=== PATIENT | male | born 1995 | race Hispanic/Latino ===

== ENCOUNTER 2021-07-13 11:43 | Emergency (ER) | payer SELFPAY ==
--- NOTE | ~2021-07-13 | XR_ITS ---
EXAMINATION: XR lumbar spine 2-3V EXAM DATE: 07/13/2021 13:10 INDICATION: Low back pain X 3 months. [employer]. TECHNIQUE: Lumber spine frontal, lateral, lateral L5-S1 projections for interpretation. There is no prior study for comparison. FINDINGS: The vertebral bodies are aligned in the AP dimension. Vertebral body and disc heights are well-maintained. There are no acute fractures identified. There is no spondylolysis. Facet joints dem onstrate mild arthropathy at L5-S1. Sacrum, sacroiliac joints, sacral arcuate lines are intact. Yuniel sue soft tissue is unremarkable. IMPRESSION: Mild L5-S1 facet arthropathy. Reviewed, dictated and finalized at location A.
[2021-07-13 11:49] VITALS: BP 111/62; PULSE 79; RESP 18; TEMP 36.4; O2SAT 99
[2021-07-13] MEDS: MORPHINE SULFATE (*CRX) 4 MG/ML INJ IV PUSH (13:31)
[2021-07-13 13:59] LABS: Add Urine Microscopic? NO; Appearance Urine Clear (Clear); Bilirubin Urine Negative (Negative); Blood Urine Negative (Negative); Color Urine Yellow (Yellow); Glucose Urine UA Negative (Negative); Ketones Urine Negative (Negative); Leukocyte Esterase Ur Negative LEU/UL (Negative); Nitrate Urine Negative (Negative); Protein Urine Negative (Negative); Specific Grav Ur 1.016 (1.001-1.035); Urobilinogen Urine Negative mg/dL (<2.0)
[2021-07-13 14:06] LABS: Basophils Percent Auto 0.5 % (0.2-1.2); Eosinophils Absolute Auto 0.2 K/mm3 (0-0.3); Hemoglobin 14.9 g/dL (14.0-18.0); Immature Granulocyte Absolute 0.01 K/mm3 (0.00-0.031); Immature Granulocyte Percent A 0.2 % (0-0.5); Lymphocytes Percent Auto 23.3 % (18.3-44.2); Mean Corpuscular HGB Conc 35.5 g/dl (32-36); Mean Corpuscular Hemoglobin 30.4 pg (26-34); Mean Corpuscular Volume 85.7 fl (80-100); Monocytes Absolute Auto 0.4 K/mm3 (0.1-0.6); Neutrophils Absolute Auto 3.7 K/mm3 (1.3-6.7); Platelet Count Result 153 k/mm3 (150-375); Red Cell Distribution Width 12.1 % (11.5-14.5); White Blood Count 5.6 K/mm3 (4.5-10.0)
[2021-07-13 14:25] LABS: Anion Gap 8 mmol/L (8-16); Blood Urea Nitrogen 8 mg/dL (9-20); Calcium 9.3 mg/dL (8.4-10.2); Carbon Dioxide 28 mmol/L (22-30); Chloride 104 mmol/L (98-107); Estimated CRCL calculation 112 ml/min; Estimated Glomerular Filt Rate > 60; Glucose 88 mg/dL (65-110); Potassium 4.3 mmol/L (3.4-5.0); Sodium 140 mmol/L (137-145)
--- NOTE | 2021-07-13 16:09 | ED.BACK ---
HPI - Back Pain/Injury General Chief Complaint: Back Pain/Injury Stated Complaint: low back pain Time Seen by Provider: 07/13/21 11:57 History of Present Illness HPI Narrative: Patient is a 25-year-old male who presents ER with left-sided low back pain. Symptoms began 5 days ago. He woke up in the morning with this pain. Its worse with bending and moving. Reports it is 9/10. No alleviating factors that she is noticed. No lower extremity numbness or tingling. No physical weakness. Denies fevers or chills or sweats. Patient has no abdominal pain or nausea or vomiting. No urinary frequency urgency or hematuria. Related Data Allergies Allergy/AdvReac Type Severity Reaction Status Date / Time No Known Allergies Allergy Verified 07/13/21 12:13 Review of Systems Review of Systems: All systems reviewed & are unremarkable except as noted in HPI and below Constitutional: Constitutional: Denies chills, Denies fever(s) and Denies weakness Gastrointestinal: Gastrointestinal: Denies abdominal pain, Denies nausea and Denies vomiting Genitourinary: Genitourinary: Denies hematuria, Denies dysuria and Denies urinary frequency Musculoskeletal: Musculoskeletal: Reports back pain, Denies arthralgias, Denies joint swelling and Reports muscle cramps Neurologic: Denies focal weakness and Denies numbness PMFSH Past Medical History Medical History (Updated 07/13/21 @ 16:19 by Sony Kelly MD) Healthy adult male Surgical History Surgical History (Updated 07/13/21 @ 16:19 by Sony Kelly MD) No history of previous surgery Social History Social History (Updated 07/13/21 @ 16:19 by Sony Kelly MD) Smoking status: Never smoker Exam Narrative: GENERAL: Well-appearing, well-nourished, and in no acute distress. HEAD: Normocephalic, atraumatic. CHEST: Clear to auscultation. No respiratory distress. HEART: Regular rate and rhythm. Normal peripheral pulses. Back: No reproducible midline tenderness. Mild tenderness left lower back L5-S1 region. EXTREMITIES: Normal range of motion. No edema. SKIN: Warm, dry, no rash. NEURO: Alert and oriented x3. PSYCH: Normal mood and affect. Course Course Emergency Course: Pain-free after morphine. Informed results. Discharge home with NSAIDs and muscle relaxers. Vital Signs Vital signs: Vital Signs Temperature 97.5 F L 07/13/21 11:49 Pulse Rate 79 07/13/21 11:49 Respiratory Rate 18 07/13/21 11:49 Blood Pressure 111/62 07/13/21 11:49 Pulse Oximetry 99 07/13/21 11:49 Temperature 97.5 F L 07/13/21 11:49 Pulse Rate 79 07/13/21 11:49 Respiratory Rate 18 07/13/21 11:49 Blood Pressure 111/62 07/13/21 11:49 Pulse Oximetry 99 07/13/21 11:49 MDM - Back Pain/Injury Lab Data Result diagrams: 07/13/21 13:26 07/13/21 13:26 Labs: Lab Results 07/13/21 07/13/21 07/13/21 Range/Units 13:26 13:26 13:39 WBC 5.6 (4.5-10.0) K/mm3 RBC 4.90 (4.6-6.20) M/mm3 Hgb 14.9 (14.0-18.0) g/dL Hct 42.0 (42.0-52.0) % MCV 85.7 (80-100) fl MCH 30.4 (26-34) pg MCHC 35.5 (32-36) g/dl RDW 12.1 (11.5-14.5) % Plt Count 153 (150-375) k/mm3 MPV 11.0 H (7.4-10.4) fl Immature Gran % (Auto) 0.2 (0-0.5) % Neut % (Auto) 66.0 (45.5-73.1) % Lymph % (Auto) 23.3 (18.3-44.2) % Saline % (Auto) 7.0 (2.6-8.5) % Eos % (Auto) 3.0 (0-4.4) % Baso % (Auto) 0.5 (0.2-1.2) % Lymph # (Auto) 1.30 (0.9-3.2) K/mm3 Saline # (Auto) 0.4 (0.1-0.6) K/mm3 Eos # (Auto) 0.2 (0-0.3) K/mm3 Baso # (Auto) 0.0 (0.0-0.1) K/mm3 Abs Immat Gran (auto) 0.01 (0.00-0.031) K/mm3 Absolute Neuts (auto) 3.7 (1.3-6.7) K/mm3 Absolute Nucleated RBC 0.0 (0.0-0.012) K/mm3 Nucleated RBC % 0.0 (0.0-0.2) % Sodium 140 (137-145) mmol/L Potassium 4.3 (3.4-5.0) mmol/L Chloride 104 (98-107) mmol/L Carbon Dioxide 28 (22-30) mmol/L Anion Gap 8 (8-16
[2021-07-13 16:42] VITALS: BP 114/71; PULSE 68; RESP 16; TEMP 36.6; O2SAT 100
== END 2021-07-13 16:44 | disposition home or self-care (01) ==
PROVIDERS: Emergency Provider Emergency Medicine
DX: S39.012A Strain of muscle, fascia and tendon of lower back, initial encounter (principal); X58.XXXA Exposure to other specified factors, initial encounter
CPT/HCPCS: 36415; 72100; 80048; 81003; 85025; 96374; 99284; J2270